=== PATIENT | female | born 1945 | race Caucasian/White ===

== ENCOUNTER → 2017-01-04 | Outpatient (CLI) | payer MEDICARE | END | disposition home or self-care (01) | LOC: LABWHC1 09:42 | PROVIDERS: ATTEND Internal Medicine Endocrinology, Diabetes & Metabolism | DX: E03.9 Hypothyroidism, unspecified (principal) | CPT/HCPCS: 36415; 84443 ==

== ENCOUNTER → 2017-01-04 | Outpatient (CLI) | payer MEDICARE ==
--- NOTE | 2017-01-04 09:33 | BD ---
EXAMINATION TYPE: MG DEXA axial skeleton. DATE OF EXAM: 01/04/2017 8:48 AM COMPARISON: Previous study dated 01/03/2016 CLINICAL HISTORY: Height: 63 IN Weight: 111 LBS FRAX RISK QUESTIONS: Alcohol (3 or more units per day): NO Family History (Parent hip fracture): MOTHER Glucocorticoids (More than 3mos): NO (Ex: prednisone, prednisolone, methylprednisolone, dexamethasone, and hydrocortisone). History of Fracture in Adulthood: NO Secondary Osteoporosis: 1. Type 1 Diabetes: NO 2. Hyperthyroidism: NO 3. Menopause before 45: NO 4. Malnutrition: NO 5. Chronic liver disease: NO Rheumatoid Arthritis: NO Current Tobacco Use: NO RISK FACTORS HISTORY OF: Family History of Osteoporosis: YES MOTHER AND GRANDMOTHER(M) Active: YES Diet low in dairy products/other sources of calcium: YES Postmenopausal woman: YES AGE 53 Take estrogen and/or progesterone medications: NOT NOW How long: AGE 51 - 52 MEDICATIONS: Thyroid Medications: YES Which medication: Levothyroxine How Lon YRS Additional Medications: VIT D, LEVOTHYROXINE, BLOOD PRESSURE BETA ANALILIA, EXAM MEASUREMENTS: Bone mineral densitometry was performed using the [employer] System. Bone mineral density as measured about the Lumbar spine is: ----- L1-L4(G/cm2): 0.973 T Score Values are as follows: ----- L2: -1.9 ----- L3: -1.7 ----- L4: -1.8 ----- L1-L4: -1.7 Bone mineral density has: Decreased -2.4% since study of: 01/03/2016 Bone mineral density about the R hip (g/cm2): 0.843 Bone mineral density about the L hip (g/cm2): 0.842 T Score values are as follows: -----R Neck: -1.4 -----L Neck: -1.4 -----R Intertrochanter: -2.1 -----L Intertrochanter: -1.9 Bone mineral density has: Increased 1.7% since study of: 01/03/2016 IMPRESSION: Osteopenia (T Score between -2.5 and -1 as noted by T score values There is slightly increased risk of fracture and the patient may be considered for treatment. Re-Screen 1-2 years.L-SPINE AND MAGALY HIPS MAJOR OSTEOPOROTIC FRACTURE RISK: 13.3%. HIP FRACTURE RISK: 2.7%. NOTE: T-SCORE=SD OF THE YOUNG ADULT MEAN.
--- NOTE | 2017-01-07 08:58 | MM ---
Reason for exam: additional evaluation requested from prior study. Last mammogram was performed 1 year ago. History: Patient is postmenopausal. Cyst aspiration of the left breast. Excisional biopsy of the left breast. Took estrogen for 2 years. Took progesterone for 2 years. Physical Findings: Nurse Summary: 1-2cm nodule in the right breast at 12-1 o'clock (nurse kp). MG 3D Diag Mammo W/Cad MAGALY Bilateral CC and MLO view(s) were taken. Prior study comparison: January 03, 2016, bilateral MG screening mammo w CAD. June 10, 2014, bilateral MG screening mammo w CAD. June 09, 2013, bilateral digital screening mammo w/CAD. March 14, 2011, bilateral digital screening mammo w/CAD. October 22, 2008, bilateral digital screening mammogram. Finding: There is a 11.3 mm high density, spiculated mass in the 1 o'clock position of the right breast consistent with malignancy. Increase in size since January 03, 2016, October 22, 2008, June 10, 2014, June 09, 2013, and March 14, 2011. These results were verbally communicated with the patient and result sheet given to the patient on 01/04/17. ASSESSMENT: Highly suggestive of malignancy, BI-RAD 5 RECOMMENDATION: Ultrasound core biopsy of the right breast. Called Dr. Zambrano with mammographic findings and has scheduled an appointment for the patient for 01/08/17 at 1:[address] Ennis. PRELIMINARY REPORT CALLED AND FAXED TO DR. ENNIS ON 01/07/17 AT 300/TP.
--- NOTE | 2017-01-07 08:59 | USB ---
Reason for exam: clinical finding. History: Patient is postmenopausal. Cyst aspiration of the left breast. Excisional biopsy of the left breast. Took estrogen for 2 years. Took progesterone for 2 years. Indicated problem(s): palpable abnormality in the right breast. US Breast RT Right breast ultrasound including all four quadrants, the retroareolar region and axilla demonstrates a 1.1 x 0.8 x 1.1cm angular, spiculated, irregular, solid lesion at 1 o'clock. These results were verbally communicated with the patient and result sheet given to the patient on 01/04/17. ASSESSMENT: Highly suggestive of malignancy, BI-RAD 5 RECOMMENDATION: Ultrasound core biopsy of the right breast. Called Dr. Zambrano with mammographic findings and has scheduled an appointment for the patient for 01/08/17 at 1:[address] Ennis. PRELIMINARY REPORT CALLED AND FAXED TO DR. ENNIS ON 01/07/17 AT 300/TP.
== END | disposition home or self-care (01) ==
LOC: RADMAMWWP 07:46
PROVIDERS: ATTEND Internal Medicine Geriatric Medicine
DX: N63 Unspecified lump in breast (principal); M85.88 Other specified disorders of bone density and structure, other site
CPT/HCPCS: 77080; 76641; G0204; G0279

== ENCOUNTER → 2017-06-20 | Outpatient (CLI) | payer MEDICARE ==
--- NOTE | 2017-06-20 13:03 | US ---
EXAMINATION TYPE: US thyroid st tissue head/neck DATE OF EXAM: 06/20/2017 COMPARISON: NONE CLINICAL HISTORY: E04.2 MULTINODULAR GOITER. GLAND SIZE: Right Lobe: 3.7 x 1.0 x 1.2 cm Overall Parenchyma: homogenous Left Lobe: 3.8 x 0.9 x 1.1 cm Overall Parenchyma: homogeneous Isthmus Thickness: 0.2 cm NODULES RIGHT: # of nodules measured on right: 0 LEFT: # of nodules measured on left: 2 1. 0.8 X0.7 x 0.4 cm hypoechoic cystic nodule at the upper pole with well-defined margins. This nod ule is wider than tall and shows no intranodular vascularity. Prior size: 0.7 x 0.7 x 0.4 cm 2. 0.7 X 0.9 x 0.6 cm echogenic solid nodule at the mid pole with poorly defined margins. This nodu le is as wide as it is tall and shows intranodular vascularity. Prior size: 0.6 x 0.7 x 0.6 cm ISTHMUS: # of nodules measured in the isthmus: 0 Bilateral neck scanned, no evidence of lymphadenopathy. IMPRESSION: Nonspecific thyroid nodularity.
== END | disposition home or self-care (01) ==
LOC: RADUSWWP 12:07
PROVIDERS: ATTEND Internal Medicine Endocrinology, Diabetes & Metabolism
DX: E04.2 Nontoxic multinodular goiter (principal); E03.8 Other specified hypothyroidism
CPT/HCPCS: 36415; 76536; 84443

== ENCOUNTER → 2018-01-06 | Outpatient (CLI) | payer MEDICARE ==
--- NOTE | 2018-01-06 15:31 | MM ---
Reason for exam: follow-up at short interval from prior study. Last mammogram was performed 1 year ago. History: Patient is postmenopausal and has history of breast cancer at age 71. Lumpectomy of the right breast, March 21, 2017. MRI-guided biopsy of the left breast, March 06, 2017. Radiation therapy, 2017. Cyst aspiration of the left breast. Excisional biopsy of the left breast. Took estrogen for 2 years. Took progesterone for 2 years. Physical Findings: Nurse Summary: 2 x 2.5cm nodule in the right breast at 1 o'clock (nurse ts). MG 3D Diag Mammo W/Cad MAGALY Bilateral CC and MLO view(s) were taken. Spot compression CC view(s) were taken of the left breast. Prior study comparison: January 04, 2017, bilateral MG 3d diag mammo w/cad MAGALY. January 03, 2016, bilateral MG screening mammo w CAD. The breast tissue is heterogeneously dense. This may lower the sensitivity of mammography. Post therapy change on the right breast. Questionable distortion on the left breast at anterior depth medially is seen just anterior to a [place] shaped biopsy marker. Spot compression view will be done. The distortion resolves on additional views. These results were verbally communicated with the patient and result sheet given to the patient on 01/06/18. ASSESSMENT: Benign, BI-RAD 2 RECOMMENDATION: Follow-up diagnostic mammogram of both breasts in 1 year.
== END | disposition home or self-care (01) ==
LOC: RADMAMWWP 13:52
PROVIDERS: ATTEND Radiology Radiation Oncology
DX: C50.211 Malignant neoplasm of upper-inner quadrant of right female breast (principal)
CPT/HCPCS: 77066; G0279

== ENCOUNTER → 2018-01-10 | Outpatient (CLI) | payer MEDICARE | END | disposition home or self-care (01) | LOC: LABWHC1 11:55 | PROVIDERS: ATTEND Internal Medicine Endocrinology, Diabetes & Metabolism | DX: E03.8 Other specified hypothyroidism (principal) | CPT/HCPCS: 36415; 84443 ==

== ENCOUNTER → 2018-01-20 | Outpatient (CLI) | payer MEDICARE ==
[2018-01-20 08:10] LABS: ALT 28 U/L (9-52); AST 27 U/L (14-36); Cholesterol 168 mg/dL (<200); Creatine Kinase 59 U/L (30-135); HDL Cholesterol 78 mg/dL (40-60); LDL Cholesterol,Calculated 65 mg/dL (0-99); Triglycerides 126 mg/dL (<150)
== END | disposition home or self-care (01) ==
LOC: LABWHC1 07:09
PROVIDERS: ATTEND Internal Medicine Interventional Cardiology
DX: E78.2 Mixed hyperlipidemia (principal)
CPT/HCPCS: 36415; 80061; 82550; 84450; 84460

== ENCOUNTER → 2018-07-03 | Outpatient (CLI) | payer MEDICARE ==
--- NOTE | 2018-07-04 08:49 | USB ---
Reason for exam: clinical finding. History: Patient is postmenopausal and has history of breast cancer at age 71. Lumpectomy of the right breast, March 21, 2017. MRI-guided biopsy of the left breast, March 06, 2017. Radiation therapy, 2017. Cyst aspiration of the left breast. Excisional biopsy of the left breast. Took estrogen for 2 years. Took progesterone for 2 years. Indicated problem(s): palpable abnormality and pain in the left breast. Physical Findings: Nurse Summary: pain 9-3 o'clock right breast, left soft, movable, nipple inversion always (nurse dw). US Breast RT Right complete breast ultrasound includes all four quadrants, the retroareolar region and axilla. Finding demonstrates no cystic or solid lesion seen. Biozorb device seen at the 12-1 o'clock position. These results were verbally communicated with the patient and result sheet given to the patient on 07/03/18. ASSESSMENT: Benign, BI-RAD 2 RECOMMENDATION: Follow-up diagnostic mammogram of both breasts in 6 months. Back on schedule for December 2018.
== END | disposition home or self-care (01) ==
LOC: RADUSWWP 15:17
PROVIDERS: ATTEND Surgery
DX: Z08 Encounter for follow-up examination after completed treatment for malignant neoplasm (principal); Z85.3 Personal history of malignant neoplasm of breast

== ENCOUNTER → 2018-07-14 | Outpatient (CLI) | payer MEDICARE | END | disposition home or self-care (01) | LOC: LABWHC1 12:32 | PROVIDERS: ATTEND Internal Medicine Endocrinology, Diabetes & Metabolism | DX: E03.8 Other specified hypothyroidism (principal) | CPT/HCPCS: 36415; 84443 ==

== ENCOUNTER → 2018-07-14 | Outpatient (CLI) | payer MEDICARE ==
--- NOTE | 2018-07-14 17:01 | US ---
EXAMINATION TYPE: US thyroid st tissue head/neck DATE OF EXAM: 07/14/2018 COMPARISON: US 06/20/2017 CLINICAL HISTORY: 72-year-old female E04.2 Nontoxic multinodular goiter. TECHNIQUE: Multiple sonographic images of the thyroid gland are obtained. FINDINGS: GLAND SIZE: Right Lobe: 3.7 x 0.9 x 0.8 cm Overall Parenchyma: homogenous Left Lobe: 3.7 x 0.9 x 1.1 cm Overall Parenchyma: heterogeneous Isthmus Thickness: 0.2 cm NODULES RIGHT: # of nodules measured on right: 0 LEFT: # of nodules measured on left: 1 1. 0.6 X 0.7 x 0.8 cm isoechoic solid nodule at the mid pole with ill-defined margins; . This nodu le is wider than tall and shows intranodular vascularity. Prior size: 0.6 x 0.7 x 0.9 cm Previous left upper pole cyst not visualized on today's exam ISTHMUS: # of nodules measured in the isthmus: 0 Bilateral neck scanned, no evidence of lymphadenopathy. IMPRESSION: Solitary 8 mm solid nodule on the left, essentially stable from prior. Previous cyst on the left is n o longer seen.
== END | disposition home or self-care (01) ==
LOC: RADUSWWP 12:09
PROVIDERS: ATTEND Internal Medicine Endocrinology, Diabetes & Metabolism
DX: E04.2 Nontoxic multinodular goiter (principal)
CPT/HCPCS: 76536

== ENCOUNTER → 2019-01-07 | Outpatient (CLI) | payer MEDICARE ==
--- NOTE | 2019-01-07 14:37 | BD ---
EXAMINATION TYPE: Axial Bone Density DATE OF EXAM: 01/07/2019 COMPARISON: 2017 CLINICAL HISTORY: Osteopenia. Follow-up exam. Height: 62.25 Weight: 104 FRAX RISK QUESTIONS: Alcohol (3 or more units per day): no Family History (Parent hip fracture): yes, mother Glucocorticoids (More than 3mos): Advair & emergency inhaler (Ex: prednisone, prednisolone, methylprednisolone, dexamethasone, and hydrocortisone). History of Fracture in Adulthood: no Secondary Osteoporosis: 1. Type 1 Diabetes: no 2. Hyperthyroidism: no 3. Menopause before 45: no 4. Malnutrition: no 5. Chronic liver disease: no Rheumatoid Arthritis: no Current Tobacco Use: no RISK FACTORS HISTORY OF: Family History of Osteoporosis: yes Active: yes Diet low in dairy products/other sources of calcium: no Postmenopausal woman: yes: mother & grandmother Take estrogen and/or progesterone medications: not now How long: about 2 years Lost more than 2 inches in height since high school: no Frequent falls: no Poor Health: no, other than past history of breast CA & asthma Hyperparathyroidism: no Adrenal Insufficiency: no MEDICATIONS: Prednisone or other steroids: yes How Lon-6 years Thyroid Medications: yes Which medication: Levothyroxine How Long: about 8 years Osteoporosis Medications: not now Which medication: Fosamax How Lon-5 years Additional Medications: antineoplastic since 2017 ; vitamin D, blood pressure meds Additional History: Breast CA, radiation 2017; hypothyroidism EXAM MEASUREMENTS: Bone mineral densitometry was performed using the [employer]. Bone mineral density as measured about the Lumbar spine is: ----- L1-L4(G/cm2): 0.936 T Score Values are as follows: ----- L2: -2.5 ----- L3: -1.8 ----- L4: -1.9 ----- L1-L4: -2.0 Bone mineral density has: Decreased -3.2% since study of: 01/04/2017 Bone mineral density about the R hip (g/cm2): 0.795 Bone mineral density about the L hip (g/cm2): 0.767 T Score values are as follows: -----R Neck: -1.7 -----L Neck: -1.9 -----R Total: -2.0 -----L Total: -2.0 Bone mineral density has: Decreased -7.1% since study of: 01/04/2017 IMPRESSION: Osteopenia (T Score between -2.5 and -1). There is slightly increased risk of fracture and the patient may be considered for treatment. Re-Screen 2-5 years. NOTE: T-SCORE=SD OF THE YOUNG ADULT MEAN.
== END ==
LOC: RADBDWWP 08:18
PROVIDERS: ATTEND Internal Medicine Hematology & Oncology
DX: M85.80 Other specified disorders of bone density and structure, unspecified site (principal); C50.411 Malignant neoplasm of upper-outer quadrant of right female breast
CPT/HCPCS: 77080

== ENCOUNTER → 2019-01-07 | Outpatient (CLI) | payer MEDICARE ==
--- NOTE | 2019-01-07 10:11 | MM ---
Reason for exam: additional evaluation requested from prior study. Last mammogram was performed 1 year ago. History: Patient is postmenopausal and has history of breast cancer at age 71. Lumpectomy of the right breast, March 21, 2017. MRI-guided biopsy of the left breast, March 06, 2017. Radiation therapy, 2017. Cyst aspiration of the left breast. Excisional biopsy of the left breast. Took estrogen for 2 years. Took progesterone for 2 years. Taking antineoplastic for 1 year 6 months. Physical Findings: Nurse did not find any significant physical abnormalities on exam. MG 3D Diag Mammo W/Cad MAGALY Bilateral CC and MLO view(s) were taken. Prior study comparison: January 06, 2018, bilateral MG 3d diag mammo w/cad MAGALY. January 04, 2017, bilateral MG 3d diag mammo w/cad MAGALY. The breast tissue is extremely dense which could obscure a lesion on mammography. Benign appearing vascular bilateral calcifications. Left rounded middle depth asymmetry resolves on spot compression view. Left biopsy marker noted. Post therapy change on the right breast. These results were verbally communicated with the patient and result sheet given to the patient on 01/07/19. ASSESSMENT: Benign, BI-RAD 2 RECOMMENDATION: Follow-up diagnostic mammogram of both breasts in 1 year.
== END | disposition home or self-care (01) ==
LOC: RADMAMWWP 08:20
PROVIDERS: ATTEND Radiology Radiation Oncology
DX: C50.211 Malignant neoplasm of upper-inner quadrant of right female breast (principal); Z92.3 Personal history of irradiation; Z17.0 Estrogen receptor positive status [ER+]
CPT/HCPCS: 77066; G0279; 77062

== ENCOUNTER → 2019-01-16 | Outpatient (CLI) | payer MEDICARE ==
--- NOTE | 2019-01-17 16:45 | US ---
EXAMINATION TYPE: US kidneys/renal and bladder DATE OF EXAM: 01/16/2019 COMPARISON: Renal ultrasound from 2011 CLINICAL HISTORY: R31.9 Hematuria. Hematuria, lower back pain EXAM MEASUREMENTS: Right Kidney: 9.5 x 3.3 x 4.5 cm Left Kidney: 9.1 x 4.0 x 3.9 cm Right Kidney: prominent collecting system Left Kidney: no evidence of hydronephrosis Bladder: possible diverticula noted posterior left wall Bilateral Jets seen: yes There is prominent right renal collecting system with mild calyceal dilatation. No nephrolithiasis i s seen. No masses are identified. The urinary bladder is satisfactorily distended. Small outpouchin g left posterior wall could reflect small diverticulum. Bilateral ureteral jets are seen. IMPRESSION: Mild right-sided hydronephrosis felt present, cannot exclude partial obstructing right ur eter calculus. Consider CT follow-up given patient's symptoms.
== END | disposition home or self-care (01) ==
LOC: RADUSWWP 16:11
PROVIDERS: ATTEND Internal Medicine Geriatric Medicine
DX: R31.9 Hematuria, unspecified (principal)
CPT/HCPCS: 76770

== ENCOUNTER → 2019-01-29 | Outpatient (CLI) | payer MEDICARE ==
--- NOTE | 2019-01-30 08:59 | CT ---
EXAMINATION TYPE: CT abdomen pelvis wo con DATE OF EXAM: 01/29/2019 COMPARISON: None INDICATION: hematuria, recent UTI DLP: 491 mGycm, Automated exposure control for dose reduction was used. CONTRAST: 0 mL of Isovue 300. Study performed without Oral Contrast TECHNIQUE: Axial images were obtained from above the diaphragm to the pubic rami in the axial plane a t 5 mm thick sections. Reconstructed images are reviewed on the computer in the coronal plane. FINDINGS: Limited CT sections are obtained the lung bases. The lung bases are clear. CT ABDOMEN: Liver: There are several hypodensities with low Hounsfield unit measurements compatible cyst. This wo uld include a cyst 2.3 cm in the dome of the right lobe of the liver measuring 4 Hounsfield units, al mnoik the anterior right lobe liver measuring 2.0 cm and -3 Hounsfield units. Small cyst too small to c renayy is likely adjacent to the ligamentum teres. Spleen: Normal Pancreas: Normal Adrenal glands: The adrenal glands are normal. Gallbladder: As visualized appears decompressed limiting evaluation Kidneys: No masses are evident. No hydronephrosis is present. No cysts are present. No renal stone s are evident. Aorta: Normal. Some vascular calcification is present. Inferior vena cava: Normal. CT PELVIS: Loops of bowel within the abdomen and pelvis are normal. Study is performed without oral contrast limiting bowel evaluation. Appendix: Not identified. No suspicious tubular structures or inflammatory changes are evident. Urinary bladder: Normal. Genitourinary structures: Uterus is normal. Adnexal regions are clear. No free fluid is within the pe lvis. Osseous structures: No suspicious lytic or sclerotic lesions. IMPRESSIONS: 1. Hepatic cysts. 2. No suspicious etiology to account for hematuria.
== END ==
LOC: RADCTMAIN 16:12
PROVIDERS: ATTEND Internal Medicine Geriatric Medicine
DX: K76.89 Other specified diseases of liver (principal)
CPT/HCPCS: 74176

== ENCOUNTER → 2019-03-27 | Outpatient (CLI) | payer MEDICARE | END | disposition home or self-care (01) | LOC: LABWHC1 09:27 | PROVIDERS: ATTEND Internal Medicine Endocrinology, Diabetes & Metabolism | DX: E03.8 Other specified hypothyroidism (principal) | CPT/HCPCS: 36415; 84443 ==

== ENCOUNTER → 2019-04-06 | Outpatient (CLI) | payer MEDICARE ==
--- NOTE | 2019-04-06 15:20 | US ---
EXAMINATION TYPE: US thyroid st tissue head/neck DATE OF EXAM: 04/06/2019 COMPARISON: 07/14/2018 CLINICAL HISTORY: E04.2 MULTINODULAR GOITER. GLAND SIZE: Right Lobe: 3.6 x 1.1 x 0.9 cm Overall Parenchyma: homogenous Left Lobe: 3.7 x 1.1 x 1.1 cm Overall Parenchyma: homogeneous Isthmus Thickness: 0.2 cm NODULES RIGHT: # of nodules measured on right: 0 LEFT: # of nodules measured on left: 1 1. 1.5 x 1.0 x 0.9 cm echogenic mixed nodule at the mid pole with well-defined margins; . This nodu le is taller than wide and shows intranodular vascularity. Prior size:no prior ISTHMUS: # of nodules measured in the isthmus: 0 Bilateral neck scanned, no evidence of lymphadenopathy. IMPRESSION: New thyroid nodule on the left in comparison to the exam of 07/14/2018. This corresponds to aTI-RADS 4 nodule by criteria. (Moderately Suspicious: FNA if ? 1.5 cm; Follow if ? 1 cm). Therefore fine-needl e aspiration is recommended given the size of 1.5 cm.
== END | disposition home or self-care (01) ==
LOC: RADUSWWP 14:45
PROVIDERS: ATTEND Internal Medicine Endocrinology, Diabetes & Metabolism
DX: E04.2 Nontoxic multinodular goiter (principal)
CPT/HCPCS: 76536

== ENCOUNTER → 2019-04-15 | Outpatient (CLI) | payer MEDICARE ==
[2019-04-15 07:32] LABS: Basophils % (A) 1 %; Eosinophils # (A) 0.1 k/uL (0-0.7); Eosinophils % (A) 3 %; HCT 42.2 % (34.0-46.0); HGB 13.4 gm/dL (11.4-16.0); Lymphocytes # (A) 1.4 k/uL (1.0-4.8); Lymphocytes % (A) 34 %; MCH 30.3 pg (25.0-35.0); MCHC 31.7 g/dL (31.0-37.0); MCV 95.4 fL (80.0-100.0); Mean Platelet Volume 7.3; Monocytes # (A) 0.3 k/uL (0-1.0); Monocytes % (A) 6 %; Neutrophils # (A) 2.4 k/uL (1.3-7.7); Neutrophils % (A) 56 %; Platelet Count 290 k/uL (150-450); RBC 4.42 m/uL (3.80-5.40); RDW 14.2 % (11.5-15.5); WBC 4.3 k/uL (3.8-10.6)
[2019-04-15 12:01] LABS: Albumin 4.3 g/dL (3.80-4.90); Albumin/Globulin Ratio 2.15 (1.60-3.17); Anion Gap 7.4 mmol/L (4.00-12.00); BUN/Creat Ratio 17.78 Ratio (12.00-20.00); Calcium 9.9 mg/dL (8.7-10.3); Carbon Dioxide 29.6 mmol/L (21.6-31.8); LDL Cholesterol,Calculated 65.4 mg/dL (0.0-131.0); Potassium 4.4 mmol/L (3.5-5.5); Total Bilirubin 0.5 mg/dL (0.2-1.2); Total Protein 6.3 g/dL (6.2-8.2); VLDL Calculation 16.6 mg/dL (5.00-40.00)
[2019-04-15 12:08] LABS: T4, Free (Free Thyroxine) 1.1 ng/dL (0.80-1.80)
== END | disposition home or self-care (01) ==
LOC: LABWHC1 06:48
PROVIDERS: ATTEND Internal Medicine Geriatric Medicine
DX: Z00.00 Encounter for general adult medical examination without abnormal findings (principal); E03.9 Hypothyroidism, unspecified; I67.1 Cerebral aneurysm, nonruptured; E78.5 Hyperlipidemia, unspecified; R73.9 Hyperglycemia, unspecified
CPT/HCPCS: 36415; 80053; 80061; 83036; 84439; 84443; 85025

== ENCOUNTER → 2019-08-24 | Outpatient (CLI) | payer MEDICARE | END | disposition home or self-care (01) | LOC: LABWHC1 09:33 | PROVIDERS: ATTEND Internal Medicine Endocrinology, Diabetes & Metabolism | DX: E03.8 Other specified hypothyroidism (principal) | CPT/HCPCS: 36415; 84443 ==

== ENCOUNTER → 2019-10-01 | Outpatient (CLI) | payer MEDICARE | END | disposition home or self-care (01) | LOC: LABWHC1 09:35 | PROVIDERS: ATTEND Internal Medicine Endocrinology, Diabetes & Metabolism | DX: E03.8 Other specified hypothyroidism (principal) | CPT/HCPCS: 36415; 84443 ==

== ENCOUNTER → 2019-10-29 | Outpatient (CLI) | payer MEDICARE ==
--- NOTE | 2019-10-29 09:23 | USB ---
Reason for exam: clinical finding. History: Patient is postmenopausal and has history of breast cancer at age 71. Lumpectomy of the right breast, March 21, 2017. MRI-guided biopsy of the left breast, March 06, 2017. Radiation therapy, 2017. Cyst aspiration of the left breast. Excisional biopsy of the left breast. Took estrogen for 2 years. Took progesterone for 2 years. Taking antineoplastic for 1 year 6 months. Indicated problem(s): pain in the right breast. Physical Findings: Nurse Summary: Patient complains of pain at incisions and clavicle area, asymmetrical thickening (nurse kp). US Breast RT Right complete breast ultrasound includes all four quadrants, the retroareolar region and axilla. Finding demonstrates Biozorb at 1 o'clock as seen on prior. No new solid or cystic mass. No adenopathy. These results were verbally communicated with the patient and result sheet given to the patient on 10/29/19. ASSESSMENT: Incomplete: need additional imaging evaluation, BI-RAD 0 RECOMMENDATION: Follow-up diagnostic mammogram of the right breast.
--- NOTE | 2019-10-29 09:25 | MM ---
Reason for exam: additional evaluation requested from abnormal screening. Last mammogram was performed 10 months ago. History: Patient is postmenopausal and has history of breast cancer at age 71. Lumpectomy of the right breast, March 21, 2017. MRI-guided biopsy of the left breast, March 06, 2017. Radiation therapy, 2017. Cyst aspiration of the left breast. Excisional biopsy of the left breast. Took estrogen for 2 years. Took progesterone for 2 years. Taking antineoplastic for 1 year 6 months. MG 3D Diag Mammo W/Cad RT CC, MLO, and XCCL view(s) were taken of the right breast. Prior study comparison: January 07, 2019, bilateral MG 3d diag mammo w/cad MAGALY. January 06, 2018, bilateral MG 3d diag mammo w/cad MAGALY. January 04, 2017, bilateral MG 3d diag mammo w/cad MAGALY. January 03, 2016, bilateral MG screening mammo w CAD. The breast tissue is heterogeneously dense. This may lower the sensitivity of mammography. Benign appearing calcifications in the right breast. Biozorb and post therapy change on the right. These results were verbally communicated with the patient and result sheet given to the patient on 10/29/19. ASSESSMENT: Benign, BI-RAD 2 RECOMMENDATION: Follow-up diagnostic mammogram of both breasts in 3 months. Back on schedule for December 2019.
== END | disposition home or self-care (01) ==
LOC: RADUSWWP 06:48
PROVIDERS: ATTEND Internal Medicine Hematology & Oncology
DX: N63.12 Unspecified lump in the right breast, upper inner quadrant (principal); R92.8 Other abnormal and inconclusive findings on diagnostic imaging of breast; Z85.3 Personal history of malignant neoplasm of breast
CPT/HCPCS: 77065; 76641; G0279; 77061

== ENCOUNTER → 2020-01-11 | Outpatient (CLI) | payer MEDICARE | END | disposition home or self-care (01) | CPT/HCPCS: 77066; G0279; 77062 ==

== ENCOUNTER → 2020-03-22 | Outpatient (CLI) | payer MEDICARE ==
--- NOTE | 2020-03-22 09:17 | US ---
EXAMINATION TYPE: US thyroid st tissue head/neck DATE OF EXAM: 03/22/2020 COMPARISON: NONE CLINICAL HISTORY: E04.2 thyroid nodule. GLAND SIZE: Right Lobe: 3.7 x 1.1 x 0.9 cm Overall Parenchyma: homogenous Left Lobe: 4.1 x 1.4 x 0.9 cm Overall Parenchyma: homogeneous Isthmus Thickness: 0.2 cm NODULES RIGHT: # of nodules measured on right: 0 LEFT: # of nodules measured on left: 1 1. 1.6 X 1.0 x 0.9 cm nodule at the upper pole with well-defined margins. This nodule is wider theodore n tall and shows intranodular vascularity. Prior size: 1.5 x 0.9 x 1.0 cm ISTHMUS: # of nodules measured in the isthmus: 0 Bilateral neck scanned, no evidence of lymphadenopathy. IMPRESSION: stable thyroid nodule
[2020-03-22 10:04] LABS: T4, Free (Free Thyroxine) 1.17 ng/dL (0.78-2.19)
== END | disposition home or self-care (01) ==
LOC: RADUSWWP 08:36
PROVIDERS: ATTEND Internal Medicine Endocrinology, Diabetes & Metabolism
DX: E04.1 Nontoxic single thyroid nodule (principal)
CPT/HCPCS: 76536; 84439; 84443

== ENCOUNTER → 2020-06-03 | Outpatient (CLI) | payer MEDICARE | END | disposition home or self-care (01) | LOC: LABWHC1 08:10 | PROVIDERS: ATTEND Internal Medicine Endocrinology, Diabetes & Metabolism | DX: E03.8 Other specified hypothyroidism (principal) | CPT/HCPCS: 36415; 84443 ==

== ENCOUNTER → 2020-12-15 | Outpatient (CLI) | payer MEDICARE | END | disposition home or self-care (01) | LOC: LABWHC1 09:03 | PROVIDERS: ATTEND Internal Medicine Endocrinology, Diabetes & Metabolism | DX: E03.8 Other specified hypothyroidism (principal) | CPT/HCPCS: 36415; 84443 ==

== ENCOUNTER → 2021-01-04 | Outpatient (CLI) | payer MEDICARE ==
--- NOTE | 2021-01-05 07:06 | US ---
EXAMINATION TYPE: US thyroid st tissue head/neck DATE OF EXAM: 01/04/2021 COMPARISON: NONE CLINICAL HISTORY: E03.8 Other specified hypothyroidism. F/U GLAND SIZE: Right Lobe: 4.1 x 1.0 x 1.0 Overall Parenchyma: homogenous Left Lobe: 3.7 x 1.2 x 1.1cm Overall Parenchyma: homogeneous Isthmus Thickness: 0.1m NODULES RIGHT: # of nodules measured on right: 0 LEFT: # of nodules measured on left: 1 1. 1.5 x 1.0 x 1.1cm, isoechoic nodule, which is wider than tall, with smooth margins, without ech ogenic foci. Prior size: 1.6 x 1.0 x 0.9 cm ISTHMUS: # of nodules measured in the isthmus: 0 Bilateral neck scanned, no evidence of lymphadenopathy. IMPRESSION: Stable left thyroid nodule unchanged from prior exam.
== END ==
LOC: RADUSWWP 16:00
PROVIDERS: ATTEND Internal Medicine Endocrinology, Diabetes & Metabolism
DX: E03.8 Other specified hypothyroidism (principal)
CPT/HCPCS: 76536

== ENCOUNTER → 2021-01-10 | Outpatient (CLI) | payer MEDICARE ==
--- NOTE | 2021-01-10 10:57 | MM ---
Reason for exam: additional evaluation requested from prior study. Last mammogram was performed 1 year ago. History: Patient is postmenopausal and has history of breast cancer at age 71. Lumpectomy of the right breast, March 21, 2017. MRI-guided biopsy of the left breast, March 06, 2017. Radiation therapy, 2017. Cyst aspiration of the left breast. Excisional biopsy of the left breast. Took estrogen for 2 years. Took progesterone for 2 years. Taking antineoplastic for 4 years beginning at age 71. Physical Findings: Nurse did not find any significant physical abnormalities on exam. MG 3D Diag Mammo W/Cad MAGALY Bilateral CC and MLO view(s) were taken. Prior study comparison: January 11, 2020, bilateral MG 3d diag mammo w/cad MAGALY. October 29, 2019, right breast MG 3d diag mammo w/cad RT. The breast tissue is heterogeneously dense. This may lower the sensitivity of mammography. Previous mammotome biopsy in the right breast. Post surgical changes right upper outer quadrant. No significant new findings when compared with previous films. These results were verbally communicated with the patient and result sheet given to the patient on 01/10/21. ASSESSMENT: Benign, BI-RAD 2 RECOMMENDATION: Follow-up diagnostic mammogram of both breasts in 1 year.
== END ==
LOC: RADMAMWWP 10:08
PROVIDERS: ATTEND Radiology Radiation Oncology
DX: Z78.0 Asymptomatic menopausal state (principal); Z85.3 Personal history of malignant neoplasm of breast
CPT/HCPCS: 77066; G0279; 77062

== ENCOUNTER → 2021-01-11 | Outpatient (CLI) | payer MEDICARE ==
--- NOTE | 2021-01-13 08:12 | BD ---
EXAMINATION TYPE: Axial Bone Density DATE OF EXAM: 01/11/2021 COMPARISON: 01/07/2019 CLINICAL HISTORY: Height: 62.2 IN Weight: 117 LBS RISK FACTORS HISTORY OF: Family History of Osteoporosis: MOTHER/GRANDMOTHER Active: YES Postmenopausal woman: AGE 53 Take estrogen and/or progesterone medications: TOOK HORMONES FOR 1 YEAR. A LONG TIME AGO MEDICATIONS: Thyroid Medications: YES Which medication: Synthroid How Lon+ YEARS Osteoporosis Medications: NOT NOW Which medication: Fosamax How Long: TOOK FOR 2 YEARS Additional Medications: VIT D, SYNTHROID, MECLIZINE, CARDIZEM, PANTOPRAZOLE, ADVAIR, LINZESS, EXEMEST ANE,ROSUVASTATIN Additional History: BREAST CANCER WITH RADIATION EXAM MEASUREMENTS: Bone mineral densitometry was performed using the [employer]. Bone mineral density as measured about the Lumbar spine is: ----- L1-L4(G/cm2): 0.969 T Score Values are as follows: ----- L2: -2.1 ----- L3: -1.6 ----- L4: -1.7 ----- L1-L4: -1.8 Bone mineral density has: Increased 3.4% since study of: 01/07/2019 Bone mineral density about the R hip (g/cm2): 0.805 Bone mineral density about the L hip (g/cm2): 0.762 T Score values are as follows: -----R Neck: -1.7 -----L Neck: -2.0 -----R Total: -2.0 -----L Total: -2.1 Bone mineral density has: Decreased -0.9% since study of: 01/07/2019 IMPRESSION: Osteopenia (T Score between -2.5 and -1). There is slightly increased risk of fracture and the patient may be considered for treatment. Re-Screen 2-5 years. NOTE: T-SCORE=SD OF THE YOUNG ADULT MEAN.
== END ==
LOC: RADBDWWP 09:15
PROVIDERS: ATTEND Internal Medicine Hematology & Oncology
DX: M85.89 Other specified disorders of bone density and structure, multiple sites (principal)
CPT/HCPCS: 77080

== ENCOUNTER → 2021-06-26 | Outpatient (CLI) | payer MEDICARE ==
[2021-06-26 16:38] LABS: T4, Free (Free Thyroxine) 1.1 ng/dL (0.80-1.80)
== END | disposition home or self-care (01) ==
LOC: LABWHC1 08:53
PROVIDERS: ATTEND Internal Medicine Endocrinology, Diabetes & Metabolism
DX: E04.1 Nontoxic single thyroid nodule (principal)
CPT/HCPCS: 36415; 84439; 84443

== ENCOUNTER → 2022-01-12 | Outpatient (CLI) | payer MEDICARE ==
--- NOTE | 2022-01-16 14:49 | MM ---
Reason for exam: screening (asymptomatic). Last mammogram was performed 1 year ago. History: Patient is postmenopausal and has history of breast cancer at age 71. Lumpectomy of the right breast, March 21, 2017. MRI-guided biopsy of the left breast, March 06, 2017. Radiation therapy, 2017. Cyst aspiration of the left breast. Excisional biopsy of the left breast. Took estrogen for 2 years. Took progesterone for 2 years. Taking antineoplastic for 4 years beginning at age 71. Physical Findings: A clinical breast exam by your physician is recommended on an annual basis and results should be correlated with mammographic findings. MG 3D Screening Mammo W/Cad Bilateral CC and MLO view(s) were taken. Prior study comparison: January 10, 2021, bilateral MG 3d diag mammo w/cad [facility]. January 11, 2020, bilateral MG 3d diag mammo w/cad [facility]. The breast tissue is heterogeneously dense. This may lower the sensitivity of mammography. Finding #1: There are stable surgical changes and architectural distortion in the posterior position of the right breast. Finding #2: There are typically benign vascular calcifications in both breasts. Previous mammotome biopsy in the left breast. There is no discrete abnormality. ASSESSMENT: Benign, BI-RAD 2 RECOMMENDATION: Routine screening mammogram of both breasts in 1 year.
== END | disposition home or self-care (01) ==
LOC: RADMAMWWP 09:32
PROVIDERS: ATTEND Internal Medicine Hematology & Oncology
DX: Z12.31 Encounter for screening mammogram for malignant neoplasm of breast (principal)
CPT/HCPCS: 77063; 77067

== ENCOUNTER → 2022-01-12 | Outpatient (CLI) | payer MEDICARE ==
[2022-01-12 15:10] LABS: T4, Free (Free Thyroxine) 1.51 ng/dL (0.800-1.800)
== END | disposition home or self-care (01) ==
LOC: LABWHC1 09:46
PROVIDERS: ATTEND Internal Medicine Endocrinology, Diabetes & Metabolism
DX: E04.2 Nontoxic multinodular goiter (principal)
CPT/HCPCS: 36415; 84439; 84443

== ENCOUNTER → 2022-02-08 | Outpatient (CLI) | payer MEDICARE ==
[2022-02-08 14:28] LABS: HCT 39.8 % (37.2-46.3); HGB 12.7 g/dL (12.0-15.0); MCH 30.1 pg (27.0-32.0); MCHC 31.9 g/dL (32.0-37.0); MCV 94.3 fL (80.0-97.0); Mean Platelet Volume 11.5 fL (9.5-12.2); NRBC Per 100 WBC 0 /100 WBCS (0.0-0.0); Platelet Count 213 X 10*3/uL (140-440); RBC 4.22 X 10*6/uL (4.10-5.20); WBC 5.61 X 10*3/uL (4.50-10.00)
[2022-02-08 17:13] LABS: African American GFR (CKD) 82.8 (60.0-200.0); Albumin 4.6 g/dL (3.8-4.9); Albumin/Globulin Ratio 2.13 (1.60-3.17); Anion Gap 12.1 mmol/L (10.00-18.00); BUN/Creat Ratio 17.74 Ratio (12.00-20.00); Blood Urea Nitrogen 14.3 mg/dL (9.0-27.0); Calcium 9.6 mg/dL (8.7-10.3); Carbon Dioxide 23.7 mmol/L (20.0-27.5); Globulin 2.1 g/dL (1.6-3.3); Non-African American GFR(CKD) 71.5 (60.0-200.0); Potassium 4.3 mmol/L (3.5-5.5); T4, Free (Free Thyroxine) 1.46 ng/dL (0.800-1.800); Total Bilirubin 0.2 mg/dL (0.30-1.20); Total Protein 6.7 g/dL (6.2-8.2)
== END | disposition home or self-care (01) ==
LOC: LABWHC1 10:18
PROVIDERS: ATTEND Internal Medicine Endocrinology, Diabetes & Metabolism
DX: E04.2 Nontoxic multinodular goiter (principal); R53.83 Other fatigue
CPT/HCPCS: 36415; 80053; 82024; 82533; 84439; 84443; 85027

== ENCOUNTER → 2022-07-19 | Outpatient (CLI) | payer MEDICARE ==
[2022-07-19 10:54] LABS: HCT 38.9 % (37.2-46.3); HGB 13.1 g/dL (12.0-15.0); MCHC 33.7 g/dL (32.0-37.0); Mean Platelet Volume 11.7 fL (9.5-12.2); NRBC Per 100 WBC 0 /100 WBCS (0.0-0.0); Platelet Count 160 X 10*3/uL (140-440); RBC 4.23 X 10*6/uL (4.10-5.20); RDW 13.2 % (11.5-14.5); WBC 7.31 X 10*3/uL (4.50-10.00)
[2022-07-19 11:13] LABS: African American GFR (CKD) 72.5 (60.0-200.0); Albumin 4.4 g/dL (3.8-4.9); Albumin/Globulin Ratio 2.2 (1.60-3.17); Anion Gap 11.5 mmol/L (10.00-18.00); Blood Urea Nitrogen 10.8 mg/dL (9.0-27.0); Calcium 9.5 mg/dL (8.7-10.3); Carbon Dioxide 24.5 mmol/L (20.0-27.5); Non-African American GFR(CKD) 62.5 (60.0-200.0); Potassium 4.1 mmol/L (3.5-5.5); T4, Free (Free Thyroxine) 1.36 ng/dL (0.800-1.800); Total Bilirubin 0.6 mg/dL (0.30-1.20); Total Protein 6.4 g/dL (6.2-8.2)
== END | disposition home or self-care (01) ==
LOC: LABWHC1 07:18
PROVIDERS: ATTEND Internal Medicine Endocrinology, Diabetes & Metabolism
DX: E04.2 Nontoxic multinodular goiter (principal); R53.83 Other fatigue
CPT/HCPCS: 36415; 80053; 82024; 82533; 84439; 84443; 85027

== ENCOUNTER → 2023-01-21 | Outpatient (CLI) | payer MEDICARE ==
--- NOTE | 2023-01-21 10:18 | US ---
EXAMINATION TYPE: US thyroid st tissue head/neck DATE OF EXAM: 01/21/2023 COMPARISON: NONE CLINICAL HISTORY: E04.2 NONTOXIC MULTINODULAR GOITER. Thyroid nodule Nodule is left lobe not right as it states one previous exam. GLAND SIZE: Right Lobe: 3.7 x 1.1 x 1.1 cm Overall Parenchyma: homogenous Left Lobe: 3.7 x 1.3 x 1.4 cm Overall Parenchyma: homogeneous Isthmus Thickness: 0.12 cm NODULES RIGHT: # of nodules measured on right: 0 LEFT: # of nodules measured on left: 1 1. 1.8 X 1.0 x 1.1 cm, upper mid, solid or almost completely solid, hypoechoic nodule, which is wid er than tall, with smooth margins, without echogenic foci. Prior size: 1.8 x 1.0 x 1.2 cm ISTHMUS: # of nodules measured in the isthmus: 0 Bilateral neck scanned, no evidence of lymphadenopathy. IMPRESSION: Stable nonspecific solid nodule left thyroid lobe. 2017 ACR TI-RADS LEVEL: *Highest TI-RADS level nodule reported
[2023-01-21 19:23] LABS: T4, Free (Free Thyroxine) 1.37 ng/dL (0.800-1.800)
== END | disposition home or self-care (01) ==
LOC: RADUSWWP 09:14
PROVIDERS: ATTEND Internal Medicine Endocrinology, Diabetes & Metabolism
DX: E04.2 Nontoxic multinodular goiter (principal); E03.8 Other specified hypothyroidism
CPT/HCPCS: 76536; 84439; 84443

== ENCOUNTER → 2023-01-21 | Outpatient (CLI) | payer MEDICARE ==
--- NOTE | 2023-01-21 22:32 | BD ---
EXAMINATION TYPE: Axial Bone Density DATE OF EXAM: 01/21/2023 CLINICAL HISTORY: 77 years old Female. ICD-10 CODE: C50.411 breast ca Comparison: Prior DEXA scan 2020 Height: 61.5 Weight: 111.0 FRAX RISK QUESTIONS: Alcohol (3 or more units per day): no Family History (Parent hip fracture): mother Glucocorticoids (More than 3mos): no History of Fracture in Adulthood: no Secondary Osteoporosis: 1. Type 1 Diabetes: no 2. Hyperthyroidism: no 3. Menopause before 45: no 4. Malnutrition: no 5. Chronic liver disease: no Rheumatoid Arthritis: no Current Tobacco Use: no RISK FACTORS HISTORY OF: Hip Fracture (Right/Left): no Spine Fracture: no History of Wrist Fracture: no Surgery to Spine/Hip(right/left)/Wrist (right/left): no Family History of Osteoporosis: mother, maternal grandmother Active: yes Diet low in dairy products/other sources of calcium: no Postmenopausal woman: no Take estrogen and/or progesterone medications: hormone sarthak How long: past 5 years Lost more than 2 inches in height since high school: yes Frequent falls: no Poor Health: no Hyperparathyroidism: no Adrenal Insufficiency: no MEDICATIONS: Prednisone or other steroids: no Thyroid Medications: levothyroxine How Long: past 10 years Osteoporosis Medications: no Additional Medications: Cholesterol med, BP Meds, Reflux meds, Additional History: Previous Breast Ca. with radiation EXAM MEASUREMENTS: Bone mineral densitometry was performed using the [employer] System. Bone mineral density as measured about the Lumbar spine is: ----- L1-L4(G/cm2): 0.967 T Score Values are as follows: ----- L1: -20 ----- L2: -2.1 ----- L3: -1.6 ----- L4: -1.7 ----- L1-L4: -1.8 Z Score Values are as follows: ----- L1: 0.2 ----- L2: 0.2 ----- L3: 0.7 ----- L4: 0.6 ----- L1-L4: 0.5 Bone mineral density has: decreased -0.2 % since study of: 01/11/2021 Bone mineral density about the R hip (g/cm2): 0.748 Bone mineral density about the L hip (g/cm2): 0.746 T Score values are as follows: -----R Neck: -1.8 -----L Neck: -2.0 -----R Total: -2.1 -----L Total: -2.0 Z Score values are as follows: -----R Neck: 0.5 -----L Neck: 0.3 -----R Total: 0.1 -----L Total: 0.1 Bone mineral density has: decreased -0.1 % since study of: 01/12/2020 FRAX%s: The graph provided illustrates a 23.3% chance for a major osteoporotic fx and a 14.6% chance for the hips probability for fx in 10 years time. IMPRESSION: Osteopenia (T Score between -2.5 and -1) remains present. There is slightly increased risk of fracture and the patient may be considered for treatment. Re-Screen 2-5 years. NOTE: T-SCORE=SD OF THE YOUNG ADULT MEAN.
--- NOTE | 2023-01-22 08:00 | MM ---
Reason for Exam: Screening (asymptomatic). Last screening mammogram was performed 12 month(s) ago. Patient History: Menarche at age 11. First Full-Term at age 27. Postmenopausal. Breast cancer, age 71. Patient used Estrogen for 2 years. Patient used Progesterone for 2 years. 03/06/2017, Core Biopsy on the Left side. 03/21/2017, Lumpectomy on the Right side. Cyst Aspiration on the Left side. Excisional Biopsy on the Left side. 2016, Radiation Therapy. Prior Study Comparison: 01/11/2020 Bilateral Diagnostic Mammogram, [facility]. 01/10/2021 Bilateral Diagnostic Mammogram, [facility]. 01/12/2022 Bilateral Screening Mammogram, [facility]. Tissue Density: The breast tissue is heterogeneously dense. This may lower the sensitivity of mammography. Findings: Analyzed By CAD. There is no suspicious group of microcalcifications or new suspicious mass in either breast. Overall Assessment: Negative, BI-RAD 1 Management: Screening Mammogram of both breasts in 1 year. A clinical breast exam by your physician is recommended on an annual basis and results should be correlated with mammographic findings. Electronically signed and approved by: Carlos Lyle M.D. Radiologis
== END | disposition home or self-care (01) ==
LOC: RADMAMWWP 09:18
PROVIDERS: ATTEND Internal Medicine Hematology & Oncology
DX: Z12.31 Encounter for screening mammogram for malignant neoplasm of breast (principal); C50.411 Malignant neoplasm of upper-outer quadrant of right female breast; M85.89 Other specified disorders of bone density and structure, multiple sites; Z78.0 Asymptomatic menopausal state
CPT/HCPCS: 77063; 77067; 77080

== ENCOUNTER → 2024-01-23 | Outpatient (CLI) | payer MEDICARE ==
--- NOTE | 2024-01-23 21:08 | US ---
EXAMINATION TYPE: US thyroid st tissue head/neck DATE OF EXAM: 01/23/2024 COMPARISON: Multiple US - 01/21/2023 US 01/15/2022 US -01/04/2021 US - 03/22/2020 CLINICAL INDICATION: Female, 78 years old with history of E04.1 NONTOXIC THYROID NODULE; Patient abdi es any changes from prior GLAND SIZE: Right Lobe: 3.3 x 1.1 x 1.1 cm Overall Parenchyma: homogeneous Left Lobe: 4.3 x 1.2 x 1.4 cm Overall Parenchyma: homogeneous Isthmus Thickness: 0.2 cm NODULES RIGHT: # of nodules measured on right: 0 LEFT: # of nodules measured on left: 1 1. 2.1 X 0.9 x 1.1 cm, mid lateral, mixed cystic and solid, isoechoic nodule, which is wider than t all, with smooth margins, without echogenic foci. TR 2 Prior size: 1.8 x 1.0 x 1.1 cm ISTHMUS: # of nodules measured in the isthmus: 0 Bilateral neck scanned, no evidence of lymphadenopathy. IMPRESSION: 1. No suspicious nodules bilateral thyroid lobes 2017 ACR TI-RADS LEVEL: TR-RADS 2 - Not Suspicious: No FNA *Highest TI-RADS level nodule reported
--- NOTE | 2024-01-26 14:54 | MM ---
Reason for Exam: Screening (asymptomatic). Last screening mammogram was performed 12 month(s) ago. Patient History: Menarche at age 11. First Full-Term at age 27. Postmenopausal. Breast cancer, right, age 71. Patient used Estrogen for 2 years. Patient used Progesterone for 2 years. 03/06/2017, Core Biopsy on the Left side. 03/21/2017, Lumpectomy on the Right side. Cyst Aspiration on the Left side. Excisional Biopsy on the Left side. 2017, Radiation Therapy. Prior Study Comparison: 01/10/2021 Bilateral Diagnostic Mammogram, [facility]. 01/12/2022 Bilateral Screening Mammogram, [facility]. 01/21/2023 Bilateral MG 3D screening mammo w/cad, [facility]. Tissue Density: The breasts are heterogeneously dense, which may obscure small masses. Findings: Analyzed By CAD. Pancreas appears stable. Slightly greater parenchymal tissues on the left compared to the right. This is stable from comparison. Benign vascular calcification is present bilaterally biosorb is present on the right. No significant interval changes. Core marker is on the left. No suspicious groups of microcalcifications, spiculated or lobular masses, architectural distortion or other secondary signs of malignancy are mammographically apparent. Overall Assessment: Benign, BI-RAD 2 Management: Screening Mammogram of both breasts in 1 year. A negative mammogram report should not preclude additional follow up of suspicious palpable abnormalities. Patient should continue monthly self breast exam. A clinical breast exam by your physician is recommended on an annual basis and results should be correlated with mammographic findings. Electronically signed and approved by: Darron Brunner D.O. Radiologis
== END | disposition home or self-care (01) ==
LOC: RADUSWWP 08:46
PROVIDERS: ATTEND Internal Medicine Hematology & Oncology
DX: C50.411 Malignant neoplasm of upper-outer quadrant of right female breast (principal); Z12.31 Encounter for screening mammogram for malignant neoplasm of breast; E04.1 Nontoxic single thyroid nodule; E03.8 Other specified hypothyroidism; Z78.0 Asymptomatic menopausal state; I10 Essential (primary) hypertension; I67.1 Cerebral aneurysm, nonruptured
CPT/HCPCS: 36415; 76536; 77063; 77067; 84443

== ENCOUNTER → 2024-01-23 | Outpatient (CLI) | payer MEDICARE | END | disposition home or self-care (01) | LOC: LABWHC1 09:23 | PROVIDERS: ATTEND Internal Medicine Endocrinology, Diabetes & Metabolism | DX: Z53.9 Procedure and treatment not carried out, unspecified reason (principal) ==

== ENCOUNTER 2024-04-14 12:49 | Day surgery (SDC) | payer MEDICARE ==
[2024-04-14] MEDS: ALPRAZolam 0.25 MG TAB PO STA (13:14)
[2024-04-14 13:42] VITALS: RESP 16; TEMP 98
[2024-04-14 14:05] VITALS: BP 161/88; PULSE 83
--- NOTE | 2024-04-15 11:26 | US ---
EXAMINATION TYPE: US FNA first lesion DATE OF EXAM: 04/14/2024 1:57 PM CLINICAL INDICATION:Female, 78 years old with history of E04.1 thyroid nodule; , thyroid nodule. COMPARISON: None ATTENDING: Dr. Isma Alvarez PROCEDURE: Informed consent was obtained. The risks and benefits of the procedure were discussed with the patien t. The site was marked. Timeout procedure was performed Ultrasound imaging of the thyroid demonstrates left thyroid nodule The patient was prepped, draped in the usual sterile fashion, and locally anesthetized with 1% lidoca ine. Six fine needle aspiration were then performed with a 25 gauge needle. Samples were sent to the pathology department for further analysis. Patient tolerated the procedure without incident and was sent home in stable condition. IMPRESSION: Successful ultrasound guided fine needle aspiration.
== END 2024-04-14 14:10 | disposition home or self-care (01) ==
LOC: RADPROMAIN 12:49
PROVIDERS: ATTEND Internal Medicine Endocrinology, Diabetes & Metabolism
DX: E04.1 Nontoxic single thyroid nodule (principal)
CPT/HCPCS: 10005; 88173; 88305

== ENCOUNTER → 2024-10-15 | Outpatient (CLI) | payer MEDICARE ==
--- NOTE | 2024-10-15 10:48 | XR ---
EXAMINATION TYPE: XR lumbar spine 2 or 3V DATE OF EXAM: 10/15/2024 10:39 AM COMPARISON: 10/15/2024 CLINICAL INDICATION: Female, 78 years old with history of M54.50 LOW BACK PAIN; PHH, pain TECHNIQUE: XR lumbar spine 2 or 3V - Frontal, lateral and coned in L5-S1 lateral views of the spine. FINDINGS: No evidence of any acute osseous pathology. No evidence of loss of vertebral body height i s seen. There is retrolisthesis of L2 on L3 alignment of the lumbar vertebral bodies. Scattered disc space narrowing. Multilevel marginal osteophyte formation throughout the visualized spine. There is f acet joint arthropathy throughout the spine. At least moderate neural foraminal stenosis at L5-S1. IMPRESSION: 1. No acute fracture. 2. 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 [facility], , 10/15/2024 10:45 AM
== END | disposition home or self-care (01) ==
LOC: RADXRMAIN 10:23
PROVIDERS: ATTEND Internal Medicine Geriatric Medicine
DX: M51.360 Other intervertebral disc degeneration, lumbar region with discogenic back pain only (principal)
CPT/HCPCS: 72100

== ENCOUNTER → 2025-01-25 | Outpatient (CLI) | payer MEDICARE ==
--- NOTE | 2025-01-25 15:18 | BD ---
EXAMINATION TYPE: Axial Bone Density DATE OF EXAM: 01/25/2025 CLINICAL HISTORY: 79 years old Female. ICD-10 CODE: C50.411 BREAST CA , Additional History: Height: 61.5 Weight: 113 FRAX RISK QUESTIONS: Family History (Parent hip fracture): yes Secondary Osteoporosis: RISK FACTORS HISTORY OF: MEDICATIONS: Thyroid Medications: Which medication: Levothyroxine How Long: about 15 years EXAM MEASUREMENTS: Bone mineral densitometry was performed using the [employer] System. Bone mineral density as measured about the Lumbar spine is: ----- L1-L4(G/cm2): 0.974 T Score Values are as follows: ----- L1: -1.9 ----- L2: -1.9 ----- L3: -1.7 ----- L4: -1.6 ----- L1-L4: -1.7 Z Score Values are as follows: ----- L1: 0.3 ----- L2: 0.3 ----- L3: 0.5 ----- L4: 0.7 ----- L1-L4: 0.5 Bone mineral density has: Increased 0.7% since study of: 01-21-23 Bone mineral density about the R hip (g/cm2): 0.735 Bone mineral density about the L hip (g/cm2): 0.750 T Score values are as follows: -----R Neck: -1.9 -----L Neck: -2.1 -----R Total: -2.2 -----L Total: -2.0 Z Score values are as follows: -----R Neck: 0.4 -----L Neck: 0.2 -----R Total: 0.1 -----L Total: 0.2 Bone mineral density has: Decreased -0.7% since study of: 01-21-23 FRAX%s: The graph provided illustrates a 26.7% chance for a major osteoporotic fx and a 17.6% chance for the hips probability for fx in 10 years time. IMPRESSION: Osteopenia (T Score between -2.5 and -1). There is slightly increased risk of fracture and the patient may be considered for treatment. Re-Screen 2-5 years. NOTE: T-SCORE=SD OF THE YOUNG ADULT MEAN. [facility], , 01/25/2025 3:16 PM
--- NOTE | 2025-01-27 13:36 | MM ---
Reason for Exam: Screening (asymptomatic). Last screening mammogram was performed 12 month(s) ago. Patient History: Menarche at age 11. First Full-Term at age 27. Postmenopausal. Breast cancer, right, age 71. Previous chest radiation therapy at age 71. Patient used Estrogen for 2 years. Patient used Progesterone for 2 years. 03/06/2017, Core Biopsy on the Left side. 03/21/2017, Lumpectomy on the Right side. Cyst Aspiration on the Left side. Excisional Biopsy on the Left side. 2016, Radiation Therapy. Prior Study Comparison: 01/12/2022 Bilateral Screening Mammogram, [facility]. 01/21/2023 Bilateral MG 3D screening mammo w/cad, [facility]. 01/23/2024 Bilateral MG 3D screening mammo w/cad, [facility]. Tissue Density: The breasts are heterogeneously dense, which may obscure small masses. Findings: Analyzed By CAD. There is no suspicious group of microcalcifications in either breast. Asymmetric nodular density upper left MLO view 4.3 cm from the nipple measuring 1.4 cm. Additional views are recommended of the left breast. Overall Assessment: Incomplete: need additional imaging evaluation, BI-RAD 0 Management: Diagnostic Mammogram of the left breast. . Patient should continue monthly self-breast exams. A clinical breast exam by your physician is recommended on an annual basis. This exam should not preclude additional follow-up of suspicious palpable abnormalities. Note on Ashley scores and lifetime risk: 1. A Ashley score greater than 3% is considered moderate risk. If this is the case, consider specialist referral to assess eligibility for a risk reducing agent. 2. If overall lifetime risk for the development of breast cancer is 20% or higher, the patient may qualify for future screening with alternating mammogram and breast MRI. [facility], , 01/25/2025 1:15 PM. Electronically signed and approved by: Carlos Lyle M.D. Radiologis
== END | disposition home or self-care (01) ==
LOC: RADMAMWWP 12:54
PROVIDERS: ATTEND Internal Medicine Hematology & Oncology
DX: Z12.31 Encounter for screening mammogram for malignant neoplasm of breast (principal); R92.333 Mammographic heterogeneous density, bilateral breasts; C50.411 Malignant neoplasm of upper-outer quadrant of right female breast; M85.89 Other specified disorders of bone density and structure, multiple sites; I10 Essential (primary) hypertension; E04.1 Nontoxic single thyroid nodule; I67.1 Cerebral aneurysm, nonruptured; Z78.0 Asymptomatic menopausal state; Z85.3 Personal history of malignant neoplasm of breast
CPT/HCPCS: 77063; 77067; 77080

== ENCOUNTER → 2025-01-27 | Outpatient (CLI) | payer MEDICARE ==
--- NOTE | 2025-01-27 13:47 | MM ---
Reason for Exam: Additional evaluation requested from abnormal screening. Last screening mammogram was performed less than 1 month ago. Patient History: Menarche at age 11. First Full-Term at age 27. Postmenopausal. Breast cancer, right, age 71. Previous chest radiation therapy at age 71. Patient used Estrogen for 2 years. Patient used Progesterone for 2 years. 03/06/2017, Core Biopsy on the Left side. 03/21/2017, Lumpectomy on the Right side. Cyst Aspiration on the Left side. Excisional Biopsy on the Left side. 2016, Radiation Therapy. Prior Study Comparison: 01/21/2023 Bilateral MG 3D screening mammo w/cad, [facility]. 01/23/2024 Bilateral MG 3D screening mammo w/cad, [facility]. 01/25/2025 Bilateral MG 3D screening mammo w/cad, [facility]. Tissue Density: Left: The breasts are heterogeneously dense, which may obscure small masses. Findings: Analyzed By CAD. No evidence for persistent nodule or mass. Findings on screening mammography were likely in the basis of summation density. Overall Assessment: Benign, BI-RAD 2 Management: Screening Mammogram of both breasts in 1 year. . Results were given to the patient verbally at the time of exam. Patient should continue monthly self-breast exams. A clinical breast exam by your physician is recommended on an annual basis. This exam should not preclude additional follow-up of suspicious palpable abnormalities. Note on Ashley scores and lifetime risk: 1. A Ashley score greater than 3% is considered moderate risk. If this is the case, consider specialist referral to assess eligibility for a risk reducing agent. 2. If overall lifetime risk for the development of breast cancer is 20% or higher, the patient may qualify for future screening with alternating mammogram and breast MRI. [facility], , 01/27/2025 1:44 PM. Electronically signed and approved by: Carlos Lyle M.D. Radiologis
== END | disposition home or self-care (01) ==
LOC: RADMAMWWP 12:55
PROVIDERS: ATTEND Internal Medicine Hematology & Oncology
DX: R92.8 Other abnormal and inconclusive findings on diagnostic imaging of breast (principal); R92.332 Mammographic heterogeneous density, left breast; Z78.0 Asymptomatic menopausal state; Z85.3 Personal history of malignant neoplasm of breast
CPT/HCPCS: 77061; 77065

== ENCOUNTER → 2025-03-18 | Outpatient (CLI) | payer MEDICARE ==
[2025-03-18 16:03] LABS: Blood Urea Nitrogen 20.7 mg/dL (9.0-27.0); Calcium 9.8 mg/dL (8.7-10.3); Carbon Dioxide 24.1 mmol/L (21.6-31.8); Chloride 102 mmol/L (96-109); Glucose 93 mg/dL (70-110); Magnesium 2.1 mg/dL (1.5-2.4); Potassium 4.7 mmol/L (3.5-5.5); Sodium 138 mmol/L (135-145)
== END | disposition home or self-care (01) ==
LOC: LABWHC1 10:07
PROVIDERS: ATTEND Nurse Practitioner
DX: I10 Essential (primary) hypertension (principal); I49.3 Ventricular premature depolarization
CPT/HCPCS: 36415; 80048; 83735; 84443